=== PATIENT | male | born 1995 | race Caucasian/White ===

== ENCOUNTER 2019-09-02 11:19 | Outpatient (CLI) | payer OTHER, SELFPAY ==
--- NOTE | ~2019-09-02 | XR_ITS ---
XR lumbar spine 2-3V 09/02/2019 11:39 Indication: Low back pain Procedure: 3 views lumbar spine Comparison: No prior studies for comparison. Findings: There is mild disc narrowing at L4-5 and L5-S1. No fracture or traumatic malalignment. No e vidence for spondylolisthesis. Vertebral body heights are maintained. Pedicles intact. Sacral foramen are symmetric. Impression: 1: Mild lumbar spondylosis. Reviewed, dictated and finalized at location A. Impression: 1: Mild lumbar spondylosis.
== END 2019-09-02 11:20 | disposition home or self-care (01) ==
LOC: ANHIMG 11:25
PROVIDERS: PCP Internal Medicine; Visit Provider Nurse Practitioner
DX: G89.29 Other chronic pain (principal); M47.896 Other spondylosis, lumbar region
CPT/HCPCS: 72100

== ENCOUNTER 2021-09-05 10:47 | Emergency (ER) | payer OTHER, SELFPAY ==
[2021-09-05 10:58] VITALS: BP 137/81; PULSE 67; RESP 18; TEMP 37.1; O2SAT 99
--- NOTE | 2021-09-05 11:00 | ED.URI ---
HPI - URI/Sore Throat General Chief Complaint: Upper Respiratory Infection Stated Complaint: Sinus,Sore Throat,Body Aches Time Seen by Provider: 09/05/21 11:00 History of Present Illness HPI Narrative: Ibrahima Hartmann is a 26 yo male with a PMH of positive HIV test, , Pyronnie's syndrome, GERD, who comes to [facility] with sore throat, body aches, sinus drainage, cough with clear drainage x 3 days. Mother is on chemo When patient interviewed he denied any of the stated PMI on his record and given multiple opportunities to acknowledge prior existing conditions and he did not Related Data Allergies Allergy/AdvReac Type Severity Reaction Status Date / Time Penicillins Allergy Unknown Hives Verified 09/05/21 11:09 Review of Systems Review of Systems: CONSTITUTIONAL: Denies fever, chills, sweats. EYES: Denies visual changes, redness, discharge. ENT: Denies rhinorrhea, has congestion, has sore throat, otalgia. CARDIOVASCULAR: Denies chest pain, palpitations, edema. RESPIRATORY: Denies dyspnea, wheezing, has cough GASTROINTESTINAL: Denies abdominal pain, nausea, vomiting, diarrhea. GENITOURINARY: Denies dysuria, hematuria, abnormal discharge SKIN: Denies rash or itching. NEUROLOGIC: Denies numbness, or focal weakness. PSYCHIATRIC: Denies anxiety or depression. [facility] Past Medical History Medical History (Updated 09/05/21 @ 11:22 by Rina Gamboa CNP) Peyronie's syndrome Positive laboratory testing for human immunodeficiency virus Routine screening for STI (sexually transmitted infection) Screening for cardiovascular condition Social History Social History Smoking status: Never smoker Second hand tobacco smoke exposure: No Alcohol intake: current Alcohol use details: Socially Substance use: never Gender identity (if verbalized by the patient): Male Comments At time of signature, I agree with nursing past medical, surgical, social and family history. There is no relevant family history pertinent to the presenting complaint. Exam Narrative: GENERAL: This is a well-nourished, well-developed patient, in mild distress. HEAD: normocephalic, atraumatic. EYES: Sclera clear/white. Vision is grossly intact. EARS: External ears normal, auditory canals erythema and without drainage, TMs normal without perforation. Hearing grossly intact. NOSE: External nose normal without nasal discharge, nares without redness, no rhinorrhea. THROAT: Mucous membranes moist, posterior pharynx mild erythema NECK: Neck supple, non-tender CARDIOVASCULAR: Regular rate and rhythm without murmurs, gallops, or rubs. RESPIRATORY: Clear to auscultation. Breath sounds equal bilaterally. No wheezes, rales, or rhonchi. GASTROINTESTINAL: Not performed SKIN: warm, intact with no suspicious lesions or rash, good texture and turgor. NEURO: awake, alert, and oriented to person, place and time. There were no obvious focal neurologic abnormalities. Steady gait EXTREMITIES: Normal range of motion. BACK: Nontender without deformity Course Course Emergency Course: Patient here with complaints of sore throat cough and drainage x3 days Patient tested for COVID which is positive also strep and and flu which were negative Patient denies any prior medical history so encouraged to use [id number] Sudafed or Mucinex as well as Zyrtec and may take Tessalon Perles for cough Level of Care: Express Care Visit Vital Signs Vital signs: Vital Signs Temperature 98.8 F 09/05/21 10:58 Pulse Rate 67 09/05/21 10:58 Respiratory Rate 18 09/05/21 10:58 Blood Pressure 137/81 09/05/21 10:58 Pulse Oximetry 99 09/05/21 10:58 Oxygen Delivery Room Air 09/05/21 10:58 Temperature 98.8 F 09/05/21 10:58 Pulse Rate 67 09/05/21 10:58 Respiratory Rate 18 09/05/21 10:58 Blood Pressure 137/81 09/05/21 10:58 Pulse Oximetry 99 09/05/21 10:58 Oxygen Delivery Room Air 09/05/21 10:58
== END 2021-09-05 12:00 | disposition home or self-care (01) ==
PROVIDERS: Emergency Provider Nurse Practitioner; PCP Internal Medicine
DX: U07.1 COVID-19 (principal); Z21 Asymptomatic human immunodeficiency virus [HIV] infection status; K21.9 Gastro-esophageal reflux disease without esophagitis; N48.6 Induration penis plastica
CPT/HCPCS: 87081; 87426; 87804; 87880; 99213; C9803; G0463